=== PATIENT | male | born 1965 | race African-American/Black ===

== ENCOUNTER 2018-02-02 20:09 | Emergency (ER) | payer MEDICAID ==
[~2018-02-02 20:09] MED LIST: HYDR25TA PO; LISI-660 PO; OLAN5TAB40 PO
== END 2018-02-02 20:22 | disposition left against medical advice (07) ==
LOC: EMS 20:13
DX: Z53.21 Procedure and treatment not carried out due to patient leaving prior to being seen by health care provider (principal)

== ENCOUNTER 2018-02-04 10:19 | Inpatient (IN) | payer MEDICAID ==
[~2018-02-04] VITALS: Ht 180.3 cm; Wt 75.9 kg
[2018-02-04] MEDS ORDERED: LORazepam 2 MG/ML VIAL IM ONE ×2 (10:45→11:15)
[2018-02-04] MEDS ORDERED: DiphenhydrAMINE HCL 50 MG/ML VIAL IM ONE (10:45)
[2018-02-04] MEDS ORDERED: HALOPERIDOL LACTATE 5 MG/ML VIAL IM ONE ×2 (10:45→11:15)
[2018-02-04 11:33] LABS: BASOPHILS % (AUTO) 0.4 % (0.0-2.0); EOSINOPHILS % (AUTO) 0.2 % (1.0-6.0); HEMATOCRIT 37.5 % (41-53); HEMOGLOBIN 12.6 g/dL (13.5-17.5); LYMPHOCYTES # (AUTO) 1.2 K/uL (1.0-4.8); LYMPHOCYTES % (AUTO) 13.7 % (22.0-44.0); MEAN CORPUSCULAR HEMOGLOBIN 31.3 pg (26.0-34.0); MEAN CORPUSCULAR HGB CONC 33.7 G/dL (31.0-37.0); MEAN CORPUSCULAR VOLUME 93 fL (80-100); MONOCYTES # (AUTO) 0.6 K/uL (0.1-1.0); MONOCYTES % (AUTO) 6.7 % (2.0-9.0); NEUTROPHILS # (AUTO) 7.2 K/uL (1.8-7.7); PLATELET COUNT (AUTO) 173 K/uL (150-450); RED BLOOD CELL COUNT(AUTO) 4.04 MIL/uL (4.50-5.90); RED CELL DISTRIBUTION WIDTH 13.3 % (11.5-14.5)
[2018-02-04 11:44] LABS: ANION GAP 15 mmol/L (8-16); CALCIUM, TOTAL 9.3 mg/dL (8.8-10.5); CARBON DIOXIDE 23 mmol/L (22-29); CHLORIDE 100 mmol/L (98-107); CREATININE 1.51 mg/dL (0.60-1.30); GLOMERULAR FILTR. RATE CALC 59 mL/min (>60); GLUCOSE,RANDOM 77 mg/dL (70-110); POTASSIUM 3.5 mmol/L (3.5-5.1); SODIUM SERUM 138 mmol/L (136-145); UREA NITROGEN, BLOOD 34 mg/dL (7-18)
[2018-02-04 11:50] LABS: ALANINE AMINOTRANSFERASE 52 U/L (12-78); ALBUMIN 4.1 g/dL (3.4-5.0); ALKALINE PHOSPHATASE 59 U/L (46-116); ASPARTATE AMINOTRANSFERASE 95 U/L (15-37); BILIRUBIN,TOTAL 1.4 mg/dL (0.1-1.0); TOTAL PROTEIN, SERUM 8.1 g/dL (6.4-8.2)
[2018-02-04] MEDS ORDERED: HALOPERIDOL 5 MG TABLET PO PRN (12:00)
[2018-02-04] MEDS ORDERED: ZOLPIDEM TARTRATE 10 MG TABLET PO PRN (12:00)
[2018-02-04] MEDS ORDERED: LORazepam 2 MG TABLET PO PRN (12:00)
[2018-02-04 12:14] LABS: CHOL/HDL RATIO 2.4 (4.2-7.3); CHOLESTEROL 184 mg/dL (131-200); HDL CHOLESTEROL 77 mg/dL (40-60); LDL CHOL (CALC.) 97 mg/dL (0-130); TRIGLYCERIDES 49 mg/dL (15-150)
[2018-02-04 12:36] LABS: FREE T4 (FREE THYROXINE) 1.29 ng/dL (0.76-1.46); THYROID STIMULATING HORMONE 2.06 uIU/mL (0.36-3.74)
[2018-02-04] MEDS ORDERED: PROMETHAZINE HCL 25 MG TABLET PO PRN (13:30)
[2018-02-04] MEDS ORDERED: MAG HYDROX/AL HYDROX/SIMETH ES 30 ML SUSPENSION UDCUP PO PRN (13:30)
[2018-02-04] MEDS ORDERED: ACETAMINOPHEN 325 MG TABLET PO PRN (13:30)
[2018-02-04] MEDS ORDERED: HydrOXYzine PAMOATE 50 MG CAPSULE PO PRN (13:30)
[2018-02-04] MEDS ORDERED: TUBERCULIN, PURIFIED PROTEIN DERIVATIVE 5 TU/0.1 ML SYG ID ONE (13:30)
[2018-02-04] MEDS ORDERED: LOPERAMIDE HCL 2 MG CAPSULE PO PRN (13:30)
[2018-02-04] MEDS ORDERED: GuaiFENesin/D-METHORPHAN [SUGAR-FREE] 200-20MG/10 ML SYRUP UDCUP PO PRN (13:30)
[2018-02-04 17:43] LABS: AMPHET/METH SCREEN,URINE POSITIVE (NEGATIVE); BARBITURATE SCREEN, URINE NEGATIVE (NEGATIVE); BENZODIAZEPINES SCREEN,URINE NEGATIVE (NEGATIVE); CANNABINOID SCREEN,URINE NEGATIVE (NEGATIVE); COCAINE SCREEN,URINE NEGATIVE (NEGATIVE); METHADONE SCREEN, URINE NEGATIVE (NEGATIVE); OPIATE SCREEN,URINE NEGATIVE (NEGATIVE); PHENCYCLIDINE SCREEN,URINE NEGATIVE (NEGATIVE)
[2018-02-04] MEDS: OLANZapine 5 MG RAPDIS TABLET PO SCH (21:00)
[2018-02-04] MEDS: THIAMINE HCL 100 MG TABLET PO SCH (21:00)
[2018-02-05] MEDS: NALTREXONE HCL 50 MG TABLET PO SCH (09:21)
[2018-02-05] MEDS: FOLIC ACID 1 MG TABLET PO SCH (09:21)
[2018-02-05] MEDS: MULTIVITAMINS WITH MINERALS, THERAPEUTIC TABLET PO SCH (09:21)
[2018-02-05 13:36] VITALS: BP 121/61
[2018-02-05] MEDS: THIAMINE HCL 100 MG TABLET PO SCH ×2 (14:01→17:09)
[2018-02-05 16:20] VITALS: BP 119/82
[2018-02-05] MEDS: OLANZapine 5 MG RAPDIS TABLET PO SCH (20:36)
[2018-02-06 05:50] VITALS: BP 133/90
[2018-02-06] MEDS: THIAMINE HCL 100 MG TABLET PO SCH (08:34)
[2018-02-06] MEDS: FOLIC ACID 1 MG TABLET PO SCH (08:35)
[2018-02-06] MEDS: MULTIVITAMINS WITH MINERALS, THERAPEUTIC TABLET PO SCH (08:35)
[2018-02-06] MEDS: NALTREXONE HCL 50 MG TABLET PO SCH (08:35)
[2018-02-06 08:55] VITALS: BP 118/72
[2018-02-06] MEDS ORDERED: LISINOPRIL 5 MG TABLET PO SCH (09:00)
[2018-02-06] MEDS ORDERED: HYDROCHLOROTHIAZIDE 25 MG TABLET PO SCH (09:00)
[2018-02-06 09:30] VITALS: BP 121/74
[2018-02-06] MEDS ORDERED: DICLOFENAC SODIUM 1% 100 GM GEL [2GM] TP PRN (10:00)
[2018-02-06] MEDS ORDERED: IBUPROFEN 600 MG TABLET PO PRN (10:00)
[2018-02-06] MEDS ORDERED: ASPIRIN 81 MG EC TABLET PO SCH (10:00)
[2018-02-06] MEDS ORDERED: OLAN5TAB30 PO (11:20)
[2018-02-06] MEDS ORDERED: NALT50TA PO (11:20)
[2018-02-06 16:02] VITALS: BP 128/69
[2018-02-06] MEDS ORDERED: ASPI81TA87 PO (16:38)
== END 2018-02-06 17:30 | disposition home or self-care (01) | DRG 750 ==
LOC: EMS 10:21 → B3A 02-05 11:48
PROVIDERS: ADMIT Psychiatry & Neurology Psychiatry; ATTEND Psychiatry & Neurology Psychiatry
DX: F20.0 Paranoid schizophrenia (principal); N18.3 Chronic kidney disease, stage 3 (moderate); Z91.19 Patient's noncompliance with other medical treatment and regimen; I12.9 Hypertensive chronic kidney disease with stage 1 through stage 4 chronic kidney disease, or unspecified chronic kidney disease; F15.10 Other stimulant abuse, uncomplicated; E78.5 Hyperlipidemia, unspecified; F17.210 Nicotine dependence, cigarettes, uncomplicated; M19.90 Unspecified osteoarthritis, unspecified site; G47.00 Insomnia, unspecified; I25.10 Atherosclerotic heart disease of native coronary artery without angina pectoris; M17.10 Unilateral primary osteoarthritis, unspecified knee; Z79.82 Long term (current) use of aspirin; Z79.899 Other long term (current) drug therapy; Z81.8 Family history of other mental and behavioral disorders
CPT/HCPCS: 84439; 84443; 87081; 93005; 96372; 99291; G0480; J1200; J1630; J2060

== ENCOUNTER 2019-12-23 18:09 | Inpatient (IN) | payer MEDICAID ==
[~2019-12-23] VITALS: Ht 180.3 cm; Wt 100.7 kg
[~2019-12-23 18:09] MED LIST changes: +ASPI81TA87 PO; +HYDR-1475 PO; -HYDR25TA PO; +NALT50TA PO; +OLAN5TAB30 PO; -OLAN5TAB40 PO
[2019-12-23] MEDS ORDERED: LISI-662 PO (18:45)
[2019-12-23] MEDS ORDERED: RISP3 PO (18:45)
[2019-12-23] MEDS ORDERED: HALOPERIDOL 5 MG TABLET PO PRN (21:15)
[2019-12-23] MEDS ORDERED: ZOLPIDEM TARTRATE 10 MG TABLET PO PRN (21:15)
[2019-12-23 21:41] VITALS: BP 145/90
[2019-12-23] MEDS ORDERED: INFLUENZA VIRUS VACCINE QVS 2019-20 (3YR+)/PF 60 MCG/0.5 ML SYRINGE IM ONE (22:00)
[2019-12-23] MEDS: LORazepam 2 MG TABLET PO PRN (22:00)
[2019-12-24 06:30] VITALS: BP 102/64
[2019-12-24 07:23] LABS: BASOPHILS % (AUTO) 0.3 % (0.0-2.0); EOSINOPHILS % (AUTO) 6.2 % (1.0-6.0); HEMATOCRIT 37.1 % (41-53); HEMOGLOBIN 12.1 g/dL (13.5-17.5); LYMPHOCYTES # (AUTO) 1.4 K/uL (1.0-4.8); LYMPHOCYTES % (AUTO) 22.7 % (22.0-44.0); MEAN CORPUSCULAR HEMOGLOBIN 31.1 pg (26.0-34.0); MEAN CORPUSCULAR HGB CONC 32.5 G/dL (31.0-37.0); MEAN CORPUSCULAR VOLUME 96 fL (80-100); MONOCYTES # (AUTO) 0.5 K/uL (0.1-1.0); MONOCYTES % (AUTO) 8.2 % (2.0-9.0); NEUTROPHILS # (AUTO) 3.9 K/uL (1.8-7.7); NEUTROPHILS % (AUTO) 62.6 % (40.0-70.0); PLATELET COUNT (AUTO) 185 K/uL (150-450); RED BLOOD CELL COUNT(AUTO) 3.88 MIL/uL (4.50-5.90); RED CELL DISTRIBUTION WIDTH 13.9 % (11.5-14.5)
[2019-12-24 07:46] LABS: HEMOGLOBIN A1C 5.1 % (3.8-5.6)
[2019-12-24 07:56] LABS: ALANINE AMINOTRANSFERASE 45 U/L (12-78); ALBUMIN 2.8 g/dL (3.4-5.0); ALKALINE PHOSPHATASE 67 U/L (46-116); ANION GAP 4 mmol/L (8-16); ASPARTATE AMINOTRANSFERASE 27 U/L (15-37); BILIRUBIN,TOTAL 0.3 mg/dL (0.1-1.0); CALCIUM, TOTAL 8.6 mg/dL (8.8-10.5); CARBON DIOXIDE 27 mmol/L (22-29); CHLORIDE 104 mmol/L (98-107); CHOL/HDL RATIO 3.2 (4.2-7.3); CHOLESTEROL 161 mg/dL (131-200); CREATININE 1.16 mg/dL (0.60-1.30); FREE T4 (FREE THYROXINE) 1.07 ng/dL (0.76-1.46); GLOMERULAR FILTR. RATE CALC > 60 mL/min (>60); GLUCOSE,RANDOM 97 mg/dL (70-110); HDL CHOLESTEROL 50 mg/dL (40-60); LDL CHOL (CALC.) 100 mg/dL (0-130); POTASSIUM 4.4 mmol/L (3.5-5.1); SODIUM SERUM 135 mmol/L (136-145); THYROID STIMULATING HORMONE 0.99 uIU/mL (0.36-3.74); TOTAL PROTEIN, SERUM 6.4 g/dL (6.4-8.2); TRIGLYCERIDES 56 mg/dL (15-150); UREA NITROGEN, BLOOD 20 mg/dL (7-18)
[2019-12-24 08:18] VITALS: BP 131/88
[2019-12-24] MEDS ORDERED: LOPERAMIDE HCL 2 MG CAPSULE PO PRN (09:00)
[2019-12-24] MEDS ORDERED: PETROLATUM,WHITE 28 GM JELLY TP PRN (09:00)
[2019-12-24] MEDS ORDERED: HYDROCHLOROTHIAZIDE 25 MG TABLET PO SCH (09:00)
[2019-12-24] MEDS: ASPIRIN 81 MG EC TABLET PO SCH (09:00)
[2019-12-24] MEDS ORDERED: OMEPRAZOLE 20 MG CAPSULE PO PRN (09:00)
[2019-12-24] MEDS ORDERED: CloNIDine HCL 0.1 MG TABLET PO PRN (09:00)
[2019-12-24] MEDS ORDERED: DOCUSATE SODIUM 100 MG CAPSULE PO PRN (09:00)
[2019-12-24] MEDS ORDERED: MAGNESIUM HYDROXIDE SUSPENSION 30 ML UDCUP PO PRN (09:00)
[2019-12-24] MEDS ORDERED: ALBUTEROL SULFATE HFA 90 MCG/PUFF 8 GM INHALER IH PRN (09:00)
[2019-12-24] MEDS ORDERED: ASPIRIN 81 MG CHEWABLE TABLET PO SCH (09:00)
[2019-12-24] MEDS ORDERED: MAG HYDROX/AL HYDROX/SIMETH ES 30 ML SUSPENSION UDCUP PO PRN (09:00)
[2019-12-24] MEDS ORDERED: LISINOPRIL 20 MG TABLET PO SCH (09:00)
[2019-12-24] MEDS ORDERED: BACITRACIN 28.4 GM OINTMENT TP PRN (09:00)
[2019-12-24] MEDS ORDERED: ACETAMINOPHEN 325 MG TABLET PO PRN (09:00)
[2019-12-24] MEDS ORDERED: IBUPROFEN 600 MG TABLET PO PRN (09:00)
[2019-12-24] MEDS: HYDROCHLOROTHIAZIDE 25 MG TABLET PO SCH (09:05)
[2019-12-24] MEDS: LISINOPRIL 20 MG TABLET PO SCH (09:05)
[2019-12-24] MEDS: OLANZapine 5 MG TABLET PO SCH ×2 (12:54→16:56)
[2019-12-24 16:12] VITALS: BP 134/76
[2019-12-25 05:54] VITALS: BP 118/69
[2019-12-25 08:11] VITALS: BP 131/73
[2019-12-25] MEDS: LISINOPRIL 20 MG TABLET PO SCH (09:32)
[2019-12-25] MEDS: HYDROCHLOROTHIAZIDE 25 MG TABLET PO SCH (09:32)
[2019-12-25] MEDS: OLANZapine 5 MG TABLET PO SCH (09:32)
[2019-12-25] MEDS: ASPIRIN 81 MG EC TABLET PO SCH (09:33)
[2019-12-25 16:08] VITALS: BP 115/71
[2019-12-25] MEDS: OLANZapine 10 MG TABLET PO SCH (16:42)
[2019-12-25] MEDS: LORazepam 2 MG TABLET PO PRN (16:42)
[2019-12-26 05:53] VITALS: BP 124/88
[2019-12-26 08:42] VITALS: BP 133/76
[2019-12-26] MEDS: ASPIRIN 81 MG EC TABLET PO SCH (09:05)
[2019-12-26] MEDS: HYDROCHLOROTHIAZIDE 25 MG TABLET PO SCH (09:06)
[2019-12-26] MEDS: OLANZapine 10 MG TABLET PO SCH ×2 (09:06→16:13)
[2019-12-26] MEDS: LISINOPRIL 20 MG TABLET PO SCH (09:06)
[2019-12-26] MEDS: LORazepam 2 MG TABLET PO PRN (16:13)
[2019-12-26 16:35] VITALS: BP 110/65
[2019-12-27 05:40] VITALS: BP 114/72
[2019-12-27] MEDS: HYDROCHLOROTHIAZIDE 25 MG TABLET PO SCH (09:03)
[2019-12-27] MEDS: ASPIRIN 81 MG EC TABLET PO SCH (09:03)
[2019-12-27] MEDS: OLANZapine 10 MG TABLET PO SCH ×2 (09:03→17:35)
[2019-12-27] MEDS: LISINOPRIL 20 MG TABLET PO SCH (09:03)
[2019-12-27 09:50] VITALS: BP 140/63
[2019-12-27 16:00] VITALS: BP 128/78
[2019-12-27] MEDS: LORazepam 2 MG TABLET PO PRN (17:35)
[2019-12-28 04:29] VITALS: BP 137/90
[2019-12-28 08:28] VITALS: BP 126/66
[2019-12-28] MEDS: LISINOPRIL 20 MG TABLET PO SCH (08:41)
[2019-12-28] MEDS: OLANZapine 10 MG TABLET PO SCH ×2 (08:41→16:28)
[2019-12-28] MEDS: HYDROCHLOROTHIAZIDE 25 MG TABLET PO SCH (08:41)
[2019-12-28] MEDS: ASPIRIN 81 MG EC TABLET PO SCH (08:42)
[2019-12-28 16:00] VITALS: BP 123/74
[2019-12-28] MEDS: LORazepam 2 MG TABLET PO PRN (16:28)
[2019-12-29 02:46] VITALS: BP 135/77
[2019-12-29] MEDS: LORazepam 2 MG TABLET PO PRN ×2 (03:54→16:38)
[2019-12-29] MEDS ORDERED: OLAN10TA3 PO (06:04)
[2019-12-29 08:38] VITALS: BP 120/66
[2019-12-29] MEDS: ASPIRIN 81 MG EC TABLET PO SCH (09:11)
[2019-12-29] MEDS: HYDROCHLOROTHIAZIDE 25 MG TABLET PO SCH (09:11)
[2019-12-29] MEDS: OLANZapine 10 MG TABLET PO SCH ×2 (09:11→16:38)
[2019-12-29] MEDS: LISINOPRIL 20 MG TABLET PO SCH (09:11)
[2019-12-29] MEDS: MULTIVITAMINS WITH MINERALS, THERAPEUTIC TABLET PO SCH (12:51)
[2019-12-29 16:11] VITALS: BP 105/60
[2019-12-30 00:13] VITALS: BP 104/70
[2019-12-30 08:22] VITALS: BP 141/68
[2019-12-30] MEDS: LORazepam 2 MG TABLET PO PRN (09:25)
[2019-12-30] MEDS: ASPIRIN 81 MG EC TABLET PO SCH (09:25)
[2019-12-30] MEDS: MULTIVITAMINS WITH MINERALS, THERAPEUTIC TABLET PO SCH (09:25)
[2019-12-30] MEDS: HYDROCHLOROTHIAZIDE 25 MG TABLET PO SCH (09:25)
[2019-12-30] MEDS: OLANZapine 10 MG TABLET PO SCH (09:26)
[2019-12-30] MEDS: LISINOPRIL 20 MG TABLET PO SCH (09:26)
[2019-12-30] MEDS ORDERED: OLAN10TA3 PO (11:51)
== END 2019-12-30 14:23 | disposition home or self-care (01) | DRG 751 ==
LOC: B3A 21:09
PROVIDERS: ADMIT Psychiatry & Neurology Psychiatry; ATTEND Psychiatry & Neurology Psychiatry
DX: F29 Unspecified psychosis not due to a substance or known physiological condition (principal); R45.851 Suicidal ideations; N18.3 Chronic kidney disease, stage 3 (moderate); E78.5 Hyperlipidemia, unspecified; F15.10 Other stimulant abuse, uncomplicated; F32.9 Major depressive disorder, single episode, unspecified; F41.9 Anxiety disorder, unspecified; G47.00 Insomnia, unspecified; I12.9 Hypertensive chronic kidney disease with stage 1 through stage 4 chronic kidney disease, or unspecified chronic kidney disease; I25.10 Atherosclerotic heart disease of native coronary artery without angina pectoris; M17.10 Unilateral primary osteoarthritis, unspecified knee; Z59.0 Homelessness; Z79.82 Long term (current) use of aspirin; Z56.0 Unemployment, unspecified; Z91.010 Allergy to peanuts; Z91.09 Other allergy status, other than to drugs and biological substances; Z72.89 Other problems related to lifestyle
CPT/HCPCS: 83036; 84439; 84443; 87081

== ENCOUNTER 2020-06-06 10:54 | Inpatient (IN) | payer MEDICAID ==
[~2020-06-06] VITALS: Ht 182.9 cm; Wt 79.0 kg
[~2020-06-06 10:54] MED LIST changes: -LISI-660 PO; +LISI-662 PO; -NALT50TA PO; +OLAN10TA3 PO; -OLAN5TAB30 PO
[2020-06-06] MEDS ORDERED: DiphenhydrAMINE HCL 50 MG/ML VIAL IM ONE (11:15)
[2020-06-06] MEDS ORDERED: HALOPERIDOL LACTATE 5 MG/ML VIAL IM ONE (11:15)
[2020-06-06] MEDS ORDERED: LORazepam 2 MG/ML VIAL IM ONE (11:15)
[2020-06-06 11:42] LABS: BASOPHILS % (AUTO) 0.7 % (0.0-2.0); EOSINOPHILS % (AUTO) 0.7 % (1.0-6.0); HEMATOCRIT 36.3 % (41-53); HEMOGLOBIN 12.3 g/dL (13.5-17.5); LYMPHOCYTES # (AUTO) 1.6 K/uL (1.0-4.8); LYMPHOCYTES % (AUTO) 19.9 % (22.0-44.0); MEAN CORPUSCULAR HEMOGLOBIN 30.7 pg (26.0-34.0); MEAN CORPUSCULAR VOLUME 90 fL (80-100); MONOCYTES # (AUTO) 0.7 K/uL (0.1-1.0); MONOCYTES % (AUTO) 8.8 % (2.0-9.0); NEUTROPHILS # (AUTO) 5.7 K/uL (1.8-7.7); NEUTROPHILS % (AUTO) 69.9 % (40.0-70.0); PLATELET COUNT (AUTO) 181 K/uL (150-450); RED BLOOD CELL COUNT(AUTO) 4.03 MIL/uL (4.50-5.90); RED CELL DISTRIBUTION WIDTH 16.2 % (11.5-14.5)
[2020-06-06 11:51] LABS: ANION GAP 12 mmol/L (8-16); CALCIUM, TOTAL 9.3 mg/dL (8.8-10.5); CARBON DIOXIDE 23 mmol/L (22-29); CHLORIDE 104 mmol/L (98-107); CREATININE 1.54 mg/dL (0.60-1.30); GLOMERULAR FILTR. RATE CALC 57 mL/min (>60); GLUCOSE,RANDOM 98 mg/dL (70-110); POTASSIUM 3.8 mmol/L (3.5-5.1); SODIUM SERUM 139 mmol/L (136-145); UREA NITROGEN, BLOOD 20 mg/dL (7-18)
[2020-06-06 12:19] LABS: ALANINE AMINOTRANSFERASE 30 U/L (12-78); ALBUMIN 3.7 g/dL (3.4-5.0); ALKALINE PHOSPHATASE 180 U/L (46-116); ASPARTATE AMINOTRANSFERASE 29 U/L (15-37); BILIRUBIN,TOTAL 0.6 mg/dL (0.1-1.0); CREATINE KINASE, TOTAL ONLY 551 U/L (39-308); TOTAL PROTEIN, SERUM 8.4 g/dL (6.4-8.2)
[2020-06-06] MEDS ORDERED: ZOLPIDEM TARTRATE 10 MG TABLET PO PRN (13:45)
[2020-06-06 13:46] LABS: AMPHET/METH SCREEN,URINE POSITIVE (NEGATIVE); BARBITURATE SCREEN, URINE NEGATIVE (NEGATIVE); BENZODIAZEPINES SCREEN,URINE NEGATIVE (NEGATIVE); CANNABINOID SCREEN,URINE POSITIVE (NEGATIVE); COCAINE SCREEN,URINE NEGATIVE (NEGATIVE); METHADONE SCREEN, URINE NEGATIVE (NEGATIVE); OPIATE SCREEN,URINE NEGATIVE (NEGATIVE)
[2020-06-06 13:48] LABS: PHENCYCLIDINE SCREEN,URINE NEGATIVE (NEGATIVE)
[2020-06-07] MEDS: HALOPERIDOL 5 MG TABLET PO PRN (04:22)
[2020-06-07] MEDS: LORazepam 2 MG TABLET PO PRN (04:22)
[2020-06-07 04:32] VITALS: BP 129/84
[2020-06-07 07:10] LABS: CHOL/HDL RATIO 3.5 (4.2-7.3); FREE T4 (FREE THYROXINE) 1.05 ng/dL (0.76-1.46); THYROID STIMULATING HORMONE 0.9 uIU/mL (0.36-3.74)
[2020-06-07 08:00] VITALS: BP 130/79
[2020-06-07] MEDS ORDERED: CloNIDine HCL 0.1 MG TABLET PO PRN (08:30)
[2020-06-07] MEDS ORDERED: ALBUTEROL SULFATE HFA 90 MCG/PUFF 8 GM INHALER IH PRN (08:30)
[2020-06-07] MEDS ORDERED: ONDANSETRON HCL 4 MG TABLET PO PRN (08:30)
[2020-06-07] MEDS ORDERED: MAG HYDROX/AL HYDROX/SIMETH ES 30 ML SUSPENSION UDCUP PO PRN (08:30)
[2020-06-07] MEDS ORDERED: ACETAMINOPHEN 325 MG TABLET PO PRN (08:30)
[2020-06-07] MEDS ORDERED: LOPERAMIDE HCL 2 MG CAPSULE PO PRN (08:30)
[2020-06-07] MEDS ORDERED: DOCUSATE SODIUM 100 MG CAPSULE PO PRN (08:30)
[2020-06-07] MEDS ORDERED: OMEPRAZOLE 20 MG CAPSULE PO PRN (08:30)
[2020-06-07] MEDS ORDERED: MAGNESIUM HYDROXIDE SUSPENSION 30 ML UDCUP PO PRN (08:30)
[2020-06-07] MEDS ORDERED: PETROLATUM,WHITE 28 GM JELLY TP PRN (08:30)
[2020-06-07] MEDS: ASPIRIN 81 MG EC TABLET PO SCH (10:32)
[2020-06-07] MEDS: LISINOPRIL 20 MG TABLET PO SCH (10:33)
[2020-06-07 16:43] VITALS: BP 116/80
[2020-06-07] MEDS: IBUPROFEN 600 MG TABLET PO PRN (21:07)
[2020-06-07] MEDS: SIMVASTATIN 10 MG TABLET PO SCH (21:07)
[2020-06-07 21:08] VITALS: BP 126/94
[2020-06-08 06:47] VITALS: BP 121/82
[2020-06-08] MEDS: IBUPROFEN 600 MG TABLET PO PRN ×2 (06:54→14:50)
[2020-06-08 08:00] VITALS: BP 132/85
[2020-06-08 08:20] LABS: ANION GAP 3 mmol/L (8-16); CALCIUM, TOTAL 8.5 mg/dL (8.8-10.5); CARBON DIOXIDE 31 mmol/L (22-29); CHLORIDE 104 mmol/L (98-107); CREATINE KINASE, TOTAL ONLY 334 U/L (39-308); CREATININE 0.96 mg/dL (0.60-1.30); GLOMERULAR FILTR. RATE CALC > 60 mL/min (>60); GLUCOSE,RANDOM 91 mg/dL (70-110); SODIUM SERUM 138 mmol/L (136-145); UREA NITROGEN, BLOOD 14 mg/dL (7-18)
[2020-06-08] MEDS: LISINOPRIL 20 MG TABLET PO SCH (11:09)
[2020-06-08] MEDS: ASPIRIN 81 MG EC TABLET PO SCH (11:10)
[2020-06-08] MEDS: BACITRACIN 28 GM OINTMENT TP PRN (13:47)
[2020-06-08 18:56] VITALS: BP 124/88
[2020-06-08] MEDS: SIMVASTATIN 10 MG TABLET PO SCH (20:42)
[2020-06-08] MEDS: OLANZapine 10 MG TABLET PO SCH (20:42)
[2020-06-09 07:00] VITALS: BP 124/83
[2020-06-09 09:36] VITALS: BP 130/95
[2020-06-09] MEDS: LORazepam 2 MG TABLET PO PRN (09:37)
[2020-06-09] MEDS: LISINOPRIL 20 MG TABLET PO SCH (09:37)
[2020-06-09] MEDS: GABAPENTIN 300 MG CAPSULE PO SCH ×2 (09:37→16:34)
[2020-06-09] MEDS: HALOPERIDOL 5 MG TABLET PO PRN (09:37)
[2020-06-09] MEDS: ASPIRIN 81 MG EC TABLET PO SCH (09:37)
[2020-06-09 16:42] VITALS: BP 126/84
[2020-06-09] MEDS: SIMVASTATIN 10 MG TABLET PO SCH (21:07)
[2020-06-09] MEDS: OLANZapine 10 MG TABLET PO SCH (21:08)
[2020-06-10] MEDS: ASPIRIN 81 MG EC TABLET PO SCH (08:48)
[2020-06-10] MEDS: GABAPENTIN 300 MG CAPSULE PO SCH ×2 (08:48→16:53)
[2020-06-10] MEDS: LISINOPRIL 20 MG TABLET PO SCH (08:48)
[2020-06-10] MEDS: BACITRACIN 28 GM OINTMENT TP PRN (13:13)
[2020-06-10 16:39] VITALS: BP 118/75
[2020-06-10] MEDS: SIMVASTATIN 10 MG TABLET PO SCH (20:26)
[2020-06-10] MEDS: OLANZapine 10 MG TABLET PO SCH (20:26)
[2020-06-11] MEDS: ASPIRIN 81 MG EC TABLET PO SCH (09:47)
[2020-06-11] MEDS: MULTIVITAMINS WITH MINERALS, THERAPEUTIC TABLET PO SCH (09:47)
[2020-06-11] MEDS: GABAPENTIN 300 MG CAPSULE PO SCH ×2 (09:47→16:42)
[2020-06-11] MEDS: LISINOPRIL 20 MG TABLET PO SCH (09:48)
[2020-06-11 10:33] VITALS: BP 118/74
[2020-06-11 16:00] VITALS: BP 119/64
[2020-06-11] MEDS: OLANZapine 10 MG TABLET PO SCH (20:50)
[2020-06-11] MEDS: SIMVASTATIN 10 MG TABLET PO SCH (20:50)
[2020-06-12 08:00] VITALS: BP 111/70
[2020-06-12] MEDS: LISINOPRIL 20 MG TABLET PO SCH (09:48)
[2020-06-12] MEDS: GABAPENTIN 300 MG CAPSULE PO SCH ×2 (09:48→17:01)
[2020-06-12] MEDS: ASPIRIN 81 MG EC TABLET PO SCH (09:48)
[2020-06-12] MEDS: HALOPERIDOL 5 MG TABLET PO PRN (09:48)
[2020-06-12] MEDS: MULTIVITAMINS WITH MINERALS, THERAPEUTIC TABLET PO SCH (09:49)
[2020-06-12 16:46] VITALS: BP 106/66
[2020-06-12] MEDS: OLANZapine 10 MG TABLET PO SCH (20:12)
[2020-06-12] MEDS: SIMVASTATIN 10 MG TABLET PO SCH (20:12)
[2020-06-13 08:00] VITALS: BP 112/67
[2020-06-13] MEDS: MULTIVITAMINS WITH MINERALS, THERAPEUTIC TABLET PO SCH (10:06)
[2020-06-13] MEDS: ASPIRIN 81 MG EC TABLET PO SCH (10:06)
[2020-06-13] MEDS: GABAPENTIN 300 MG CAPSULE PO SCH ×2 (10:06→16:21)
[2020-06-13] MEDS: LISINOPRIL 20 MG TABLET PO SCH (10:07)
[2020-06-13] MEDS: HALOPERIDOL 5 MG TABLET PO PRN (10:08)
[2020-06-13 16:50] VITALS: BP 99/70
[2020-06-13] MEDS: OLANZapine 10 MG TABLET PO SCH (20:35)
[2020-06-13] MEDS: SIMVASTATIN 10 MG TABLET PO SCH (20:35)
[2020-06-14 09:00] VITALS: BP 133/83
[2020-06-14] MEDS: LISINOPRIL 20 MG TABLET PO SCH (10:51)
[2020-06-14] MEDS: GABAPENTIN 300 MG CAPSULE PO SCH ×2 (10:51→16:45)
[2020-06-14] MEDS: MULTIVITAMINS WITH MINERALS, THERAPEUTIC TABLET PO SCH (10:51)
[2020-06-14] MEDS: ASPIRIN 81 MG EC TABLET PO SCH (10:51)
[2020-06-14] MEDS: HALOPERIDOL 5 MG TABLET PO PRN (10:51)
[2020-06-14 16:05] VITALS: BP 104/65
[2020-06-14] MEDS ORDERED: GABA-1181 PO (16:12)
[2020-06-14] MEDS ORDERED: SIMV-259 PO (16:12)
[2020-06-14] MEDS: OLANZapine 10 MG TABLET PO SCH (20:39)
[2020-06-14] MEDS: SIMVASTATIN 10 MG TABLET PO SCH (20:39)
[2020-06-15] MEDS: GABAPENTIN 300 MG CAPSULE PO SCH (07:49)
[2020-06-15] MEDS: ASPIRIN 81 MG EC TABLET PO SCH (07:49)
[2020-06-15] MEDS: MULTIVITAMINS WITH MINERALS, THERAPEUTIC TABLET PO SCH (07:50)
[2020-06-15] MEDS: LISINOPRIL 20 MG TABLET PO SCH (07:50)
[2020-06-15 08:00] VITALS: BP 109/72
== END 2020-06-15 11:05 | disposition home or self-care (01) | DRG 750 ==
LOC: EMS 10:56 → 3EX 13:37 → 3EI 13:37 → UNDOADMIN 13:37
PROVIDERS: ADMIT Psychiatry & Neurology Psychiatry; ATTEND Psychiatry & Neurology Psychiatry
DX: F25.1 Schizoaffective disorder, depressive type (principal); R45.851 Suicidal ideations; F41.9 Anxiety disorder, unspecified; G47.00 Insomnia, unspecified; F19.10 Other psychoactive substance abuse, uncomplicated; Z91.010 Allergy to peanuts; Z88.8 Allergy status to other drugs, medicaments and biological substances; I10 Essential (primary) hypertension; N28.9 Disorder of kidney and ureter, unspecified; F32.9 Major depressive disorder, single episode, unspecified; F10.20 Alcohol dependence, uncomplicated; F17.210 Nicotine dependence, cigarettes, uncomplicated; Y90.9 Presence of alcohol in blood, level not specified; N17.9 Acute kidney failure, unspecified; M62.82 Rhabdomyolysis; F12.10 Cannabis abuse, uncomplicated; F15.10 Other stimulant abuse, uncomplicated; Z20.828 Contact with and (suspected) exposure to other viral communicable diseases
CPT/HCPCS: 84439; 84443; 87426; 99291; G0480; J1200; J1630; J2060